=== PATIENT | male | born 1990 | race Caucasian/White ===

== ENCOUNTER 2019-02-14 19:00 | Emergency (ER) | payer BC ==
[2019-02-14] MEDS ORDERED: Aspirin 325 MG Tab.EC PO ONE (19:27)
--- NOTE | 2019-02-14 19:27 | EDM.PDOC ---
ED HPI GENERAL MEDICAL PROBLEM - General Chief Complaint: Neurological Problem Stated Complaint: SPLOTCHES RIGHT EYE/RIGHT WEAK Time Seen by Provider: 02/14/19 19:23 - History of Present Illness INITIAL COMMENTS - FREE TEXT/NARRATIVE: 28-year-old male presents to emergency room, brought in by coworkers after developing fairly sudden onset right-sided weakness. This started around 6:30 or time he appears significant right-sided weakness to the point he could not bear weight on it and his right arm was very weak and his leg started to improve in his arm started to improve he had significant improvement by the time he made it to the emergency room albeit not complete resolution. Patient has a history of a TIA but 3 years ago in [place] he was treated with Plavix. 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 Patient was on Plavix after his initial TIA and this was stopped about a year ago. At the onset of his symptoms patient noted some splotchiness in front of his eye on the right this was short-lived. Headache Pain Score (Numeric/FACES): 8 - Related Data Allergies Allergy/AdvReac Type Severity Reaction Status Date / Time Sulfa (Sulfonamide Allergy Cannot Verified 02/14/19 19:13 Antibiotics) Remember Home Meds: Home Meds . [No Known Home Meds] 02/14/19 [History] Past Medical History - Past Health History Medical/Surgical History: Denies Medical/Surgical History Neurological History: Reports: TIA Other Neuro History: about 3 yrs ago Social & Family History - Tobacco Use Smoking Status *Q: Current Every Day Smoker Years of Tobacco use: 2 Packs/Tins Daily: 0.2 - Caffeine Use Caffeine Use: Reports: None - Recreational Drug Use Recreational Drug Use: No ED ROS GENERAL - Review of Systems Review Of Systems: Unable To Obtain HEENT: Reports: No Symptoms Respiratory: Reports: No Symptoms Cardiovascular: Reports: No Symptoms GI/Abdominal: Reports: No Symptoms : Reports: No Symptoms Musculoskeletal: Reports: No Symptoms Skin: Reports: No Symptoms Neurological: Reports: Numbness, Weakness. Denies: Headache, Seizure, Syncope Psychiatric: Reports: No Symptoms ED EXAM, NEURO - Physical Exam Exam: See Below Exam Limited By: No Limitations General Appearance: Alert, No Apparent Distress Eye Exam: Bilateral Eye: Normal Inspection Ears: Normal External Exam, Normal Canal, Hearing Grossly Normal, Normal TMs Nose: Normal Inspection, Normal Mucosa, No Blood Throat/Mouth: Normal Inspection, Normal Lips, Normal Teeth, Normal Gums, Normal Oropharynx, Normal Voice, No Airway Compromise Head Exam: Atraumatic, Normocephalic Neck: Normal Inspection, Supple, Non-Tender, Full Range of Motion Respiratory/Chest: No Respiratory Distress, Lungs Clear, Normal Breath Sounds, No Accessory Muscle Use, Chest Non-Tender Cardiovascular: Normal Peripheral Pulses, Regular Rate, Rhythm, No Edema, No Gallop, No JVD, No Murmur, No Rub GI/Abdominal: Normal Bowel Sounds, Soft, Non-Tender, No Organomegaly, No Distention, No Abnormal Bruit, No Mass Neurological: Alert, Normal Mood/Affect, Other (Time of initial exam he had some subtle right-sided weakness mostly in his upper extremity cannot really appreciate reproduce any weakness in the right lower extremity cranial nerves II through XII grossly intact deep tendon reflexes equal and appropriate at the brachioradialis) Back Exam: Normal Inspection. No: CVA Tenderness (L), CVA Tenderness (R) Extremities: Normal Inspection, Non-Tender Psychiatric: Normal Affect, Normal Mood Skin Exam: Warm, Dry, Intact EKG INTERPRETATION EKG Date: 02/14/19 [place]: Other (Interventricular conduction delay) P-Wave: Present QRS: Other (Interventricular conduction delay favoring her right bundle) ST-T: Other (Specific changes inferior ST elevation most consistent with early repolarization) Comparison: NA - No Prior EKG Course - Vital Signs Last Recorded V/S: Last Vital Signs Temp 36.7 C 02/14/19 19:20 Pulse 67 02/14/19 19:20 Resp 20 02/14/19 19:20 BP 142/81 H 02/14/19 19:20 Pulse Ox 100 02/14/19 19:20 - Orders/Labs/Meds Orders: Active Orders 24 hr Category Date Time Status EKG Documentation Completion [RC] STAT Care 02/14/19 19:26 Active Ang Head [CT] Stat Exams 02/14/19 19:47 Taken Head wo Cont [CT] Stat Exams 02/14/19 19:24 Taken Labs: Laboratory Tests 02/14/19 02/14/19 02/14/19 Range/Units 19:10 19:10 19:10 WBC 7.48 (4.23-9.07) K/mm3 RBC 4.86 (4.63-6.08) M/mm3 Hgb 14.5 (13.7-17.5) gm/L Hct 43.1 (40.1-51.0) % MCV 88.7 (79.0-92.2) fl MCH 29.8 (25.7-32.2) pg MCHC 33.6 (32.2-35.5) g/dl RDW Std Deviation 41.8 (35.1-43.9) fL Plt Count 293 (163-337) K/mm3 MPV 9.2 L (9.4-12.3) fl Neutrophils % (Manual) 83 H (40-60) % Band Neutrophils % 0 (0-10) % Lymphocytes % (Manual) 14 L (20-40) % Atypical Lymphs % 0 % Monocytes % (Manual) 3 (2-10) % Eosinophils % (Manual) 0 L (0.8-7.0) % Basophils % (Manual) 0 L (0.2-1.2) Platelet Estimate Adequate RBC Morph Comment Normal ESR (0-15) mm/hr PT 10.3 (9.5-12.1) SECONDS INR 0.94 APTT 28 (24-31) SECONDS Sodium 140 (136-145) mEq/L Potassium 3.8 (3.5-5.1) mEq/L Chloride 103 (98-107) mEq/L Carbon Dioxide 27 (21-32) mEq/L Anion Gap 13.8 (5-15) BUN 27 H (7-18) mg/dL Creatinine 1.2 (0.7-1.3) mg/dL Est Cr Clr Drug Dosing 107.58 mL/min Estimated GFR (MDRD) > 60 (>60) mL/min BUN/Creatinine Ratio 22.5 H (14-18) Glucose 97 (74-106) mg/dL POC Glucose (70-105) mg/dL Calcium 9.6 (8.5-10.1) mg/dL Total Bilirubin 0.4 (0.2-1.0) mg/dL AST 24 (15-37) U/L ALT 31 (16-63) U/L Alkaline Phosphatase 86 (46-116) U/L Troponin I 0.035 (0.00-0.056) ng/mL C-Reactive Protein (<1.0) mg/dL Total Protein 8.0 (6.4-8.2) g/dl Albumin 4.2 (3.4-5.0) g/dl Globulin 3.8 gm/dL Albumin/Globulin Ratio 1.1 (1-2) 02/14/19 02/14/19 02/14/19 Range/Units 19:10 19:10 19:16 WBC (4.23-9.07) K/mm3 RBC (4.63-6.08) M/mm3 Hgb (13.7-17.5) gm/L Hct (40.1-51.0) % MCV (79.0-92.2) fl MCH (25.7-32.2) pg MCHC (32.2-35.5) g/dl RDW Std Deviation (35.1-43.9) fL Plt Count (163-337) K/mm3 MPV (9.4-12.3) fl Neutrophils % (Manual) (40-60) % Band Neutrophils % (0-10) % Lymphocytes % (Manual) (20-40) % Atypical Lymphs % % Monocytes % (Manual) (2-10) % Eosinophils % (Manual) (0.8-7.0) % Basophils % (Manual) (0.2-1.2) Platelet Estimate RBC Morph Comment ESR 10 (0-15) mm/hr PT (9.5-12.1) SECONDS INR APTT (24-31) SECONDS Sodium (136-145) mEq/L Potassium (3.5-5.1) mEq/L Chloride (98-107) mEq/L Carbon Dioxide (21-32) mEq/L Anion Gap (5-15) BUN (7-18) mg/dL Creatinine (0.7-1.3) mg/dL Est Cr Clr Drug Dosing mL/min Estimated GFR (MDRD) (>60) mL/min BUN/Creatinine Ratio (14-18) Glucose (74-106) mg/dL POC Glucose 102 (70-105) mg/dL Calcium (8.5-10.1) mg/dL Total Bilirubin (0.2-1.0) mg/dL AST (15-37) U/L ALT (16-63) U/L Alkaline Phosphatase (46-116) U/L Troponin I (0.00-0.056) ng/mL C-Reactive Protein < 0.2 (<1.0) mg/dL Total Protein (6.4-8.2) g/dl Albumin (3.4-5.0) g/dl Globulin gm/dL Albumin/Globulin Ratio (1-2) Meds: Medications Discontinued Medications Generic Name Dose Route Start Last Admin Trade Name Essie PRN Reason Stop Dose Admin Aspirin 325 mg 02/14/19 19:27 02/14/19 20:03 Ecotrin PO 02/14/19 19:28 325 mg ONETIME ONE Administration Clopidogrel Bisulfate 300 mg 02/14/19 20:38 02/14/19 20:49 Plavix PO 02/14/19 20:39 300 mg ONETIME ONE Administration Iohexol 75 ml 02/14/19 19:50 02/14/19 20:03 Omnipaque IVPUSH 02/14/19 19:51 75 ml ONETIME ONE Administration - Re-Assessments/Exams Free Text/Narrative Re-Assessment/Exam: 02/14/19 20:[address] was obtained initially which showed no acute changes this is followed by a head CTA that was unremarkable as well patient's stroke score might be one for some residual weakness in his right upper extremity it is unclear if this is related to the to today's event or is the chronic change from prior. Patient' s case was discussed with stroke neurologist at [facility] in [place] who recommends transfer start Plavix aspirin admission to the hospitalist. Case discussed with Dr. Gates hospitalist who kindly accepts the patient's creatinine MRI as we cannot do that at this facility get a cardiac echo and venous carotid Doppler lipids and A1c at this point he started on Plavix 300 mg and aspirin Departure - Departure Time of Disposition: 20:44 Disposition: DC/Tfer to Acute Hospital 02 Clinical Impression: TIA (transient ischemic attack) - Discharge Information Referrals: PCP,None [Primary Care Provider] - Forms: ED Department Discharge - My Orders Last 24 Hours: My Active Orders 02/14/19 19:24 Head wo Cont [CT] Stat 02/14/19 19:26 EKG Documentation Completion [RC] STAT 02/14/19 19:47 Ang Head [CT] Stat - Assessment/Plan Last 24 Hours: My Active Orders 02/14/19 19:24 Head wo Cont [CT] Stat 02/14/19 19:26 EKG Documentation Completion [RC] STAT 02/14/19 19:47 Ang Head [CT] Stat
[2019-02-14] MEDS ORDERED: Iohexol 350 MG/ML 75 ML Bottle IVPUSH ONE (19:50)
[2019-02-14] MEDS ORDERED: Clopidogrel 75 MG Tab PO ONE (20:38)
--- NOTE | 2019-02-16 19:35 | CT ---
CT angiogram of brain Technique: Multiple axial sections were obtained through the brain. Intravenous contrast was obtained as an arterial angiogram protocol. Multiple MIP images were obtained. Findings: Distal carotid arteries are patent on both sides. Normal middle and anterior cerebral arteries are seen without focal stenosis. No discrete aneurysm is seen. Two vertebral arteries are seen distally as well as normal basilar artery. There is flow into both posterior cerebral arteries without focal stenosis. Impression: 1. No abnormality is appreciated on CT angiogram of brain. Note: If patient has persistent symptoms, MRI could be considered to further evaluate. Diagnostic code #1 Agree with preliminary report issued by [facility] ([facility] preliminary report dictated on 02/14/19, 9:22 PM Central Time)
--- NOTE | 2019-02-16 19:35 | CT ---
Head CT Technique: Multiple axial sections through the brain were obtained. Intravenous contrast was not utilized. Comparison: No prior intracranial imaging. Findings: Ventricles along with basal cisterns and sulci over the convexities are within normal limits for the patient's age. No abnormal parenchymal densities are seen. No evidence of intracranial hemorrhage. No midline shift or mass effect is seen. Bone window settings were reviewed which show no acute paranasal sinus findings. No acute calvarial abnormality is seen. Impression: 1. Nothing acute is identified on noncontrast head CT exam. Diagnostic code #1 Agree with preliminary report issued by [facility] ([facility] preliminary report dictated on 02/14/19, 8:43 PM Central Time)
== END 2019-02-14 21:45 ==
LOC: JD.ED 19:00
DX: G45.9 Transient cerebral ischemic attack, unspecified (principal); F17.210 Nicotine dependence, cigarettes, uncomplicated; Z88.2 Allergy status to sulfonamides
CPT/HCPCS: 36415; 70450; 70496; 80053; 82962; 84484; 85007; 85027; 85610; 85652; 85730; 86140; 93005; 99285; A9270; Q9967; 93010; 99284